=== PATIENT | female | born 1990 | race Caucasian/White ===

== ENCOUNTER → 2017-02-13 | Outpatient (CLI) | payer OTHER ==
--- NOTE | 2017-02-13 15:26 | RAD ---
Indication neck pain. No history of injury. AP lateral and odontoid views were obtained. C1 through the upper thoracic spine are seen. Vertebral height alignment and disc spaces appear normal. No bony abnormality is seen. No acute finding is apparent. The prevertebral soft tissues appear normal. IMPRESSION: Normal study
== END | disposition home or self-care (01) ==
LOC: DXRADRC 14:32
PROVIDERS: ATTEND Nurse Practitioner Family
DX: M54.2 Cervicalgia (principal)
CPT/HCPCS: 72040